=== PATIENT | male | born 1960 | race Caucasian/White ===

== ENCOUNTER 2017-05-26 20:53 | Emergency (ER) | payer OTHER ==
[2017-05-27] MEDS: ALBUTEROL 0.5% (NEB) 2.5 MG/0.5 ML AMP INH ×2 (01:14→03:10)
[2017-05-27] MEDS: METHYLPREDNISOLONE 125 MG INJ IV (01:20)
[2017-05-27] MEDS: TERBUTALINE 1 MG/ML INJ SC (03:03)
[2017-05-27] MEDS: OXYMETAZOLINE 0.05% 15 ML NAS SPRAY NASAL (04:47)
== END 2017-05-27 04:58 | disposition home or self-care (01) ==
LOC: E/R 20:53
DX: J45.901 Unspecified asthma with (acute) exacerbation (principal); I10 Essential (primary) hypertension; R40.2142 Coma scale, eyes open, spontaneous, at arrival to emergency department; R40.2362 Coma scale, best motor response, obeys commands, at arrival to emergency department; R40.2252 Coma scale, best verbal response, oriented, at arrival to emergency department
CPT/HCPCS: 71045; 87400; 94644; 94645; 96372; 96374; 99284-25